=== PATIENT | female | born 1985 | race Caucasian/White ===

== ENCOUNTER 2016-05-10 18:52 | Emergency (ER) ==
[2016-05-10] MEDS ORDERED: TETRACAINE 0.5% UNIT-DOSE OP STA (18:53)
[2016-05-10] MEDS ORDERED: EYE-STREAM OP STA (18:53)
[2016-05-10] MEDS ORDERED: FLUORETS OP STA (18:53)
[2016-05-10 19:00] VITALS: BP 142/80; TEMP 99.3; BMI 30.9
[2016-05-10] MEDS ORDERED: GENTAK OPTH OINT OP STA (19:00)
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
== END 2016-05-10 19:14 | disposition home or self-care (01) ==
LOC: ED 18:52
DX: S05.02XA Injury of conjunctiva and corneal abrasion without foreign body, left eye, initial encounter (principal)
CPT/HCPCS: 99283

== ENCOUNTER 2016-06-20 17:05 | Emergency (ER) ==
[2016-06-20 17:16] VITALS: BP 132/83; TEMP 97.8; BMI 33.9
[2016-06-20] MEDS ORDERED: NORCO 10-325 PO STA (17:32)
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
[2016-06-20 17:50] LABS: BASOPHILS # (AUTO) 0.1 K/uL (0-0.2); BASOPHILS % (AUTO) 0.8 % (0.0-3.0); EOSINOPHILS # (AUTO) 0.2 K/ul (0.0-0.7); EOSINOPHILS % (AUTO) 2.1 % (0.0-7.0); HEMATOCRIT 34.7 % (37.0-47.0); IMMATURE GRANULOCYTE % (AUTO) 0.4 % (0.0-5.0); LYMPHOCYTES # (AUTO) 2.9 K/uL (0.60-3.4); LYMPHOCYTES % (AUTO) 38.5 (10.0-50.0); MEAN CORPUSCULAR HEMOGLOBIN 25.2 pg (27.0-31.0); MEAN CORPUSCULAR HGB CONC 31.7 (31.8-35.4); MEAN CORPUSCULAR VOLUME 79.6 fl (81.0-99.0); MONOCYTES # (AUTO) 0.4 K/uL (0.4-2.0); MONOCYTES % (AUTO) 5.5 (0-10); NEUTROPHILS % (AUTO) 52.7; PLATELET COUNT 375 10^3/uL (140-440); RED BLOOD COUNT 4.36 10^6/ul (4.20-5.40); WHITE BLOOD COUNT 7.58 K/ul (4.6-10.2)
[2016-06-20 17:51] LABS: URINE PREGNANCY INTERNAL QC INTERNAL QC VALID
[2016-06-20 18:10] LABS: ALBUMIN 3.4 g/dL (3.4-5.0); ALBUMIN/GLOBULIN RATIO 0.89; ANION GAP 9.9; BILIRUBIN,TOTAL 0.26 mg/dL (0.00-1.20); BUN/CREATININE RATIO 4.34; CREATININE 0.69 mg/dL (0.60-1.30); POTASSIUM 3.9 mmol/L (3.5-5.10); TOTAL PROTEIN 7.2 g/dL (6.4-8.2)
[2016-06-20 18:56] LABS: FERRITIN 4.32 ng/mL (4.63-204.00)
--- NOTE | 2016-06-20 19:30 | CT ---
EXAM: CT head without contrast HISTORY: Dizziness COMPARISON: None TECHNIQUE: Serial axial images of the brain were obtained from the skull base to the vertex without IV contrast. FINDINGS: The ventricles, cisterns and sulci are normal. The bethea-white matter junction is well ma intained. No midline shift or mass is identified. There is no abnormal intra or extra-axial fluid collection. The paranasal sinuses and mastoid air cells are clear. The osseous calvarium is intact . IMPRESSION: No acute intracranial abnormality or hemorrhage. If further evaluation is clinically i ndicated, MRI may be obtained.
== END 2016-06-20 18:27 | disposition home or self-care (01) ==
LOC: ED 17:05
DX: R42 Dizziness and giddiness (principal); R51 Headache; D64.9 Anemia, unspecified; W19.XXXA Unspecified fall, initial encounter
CPT/HCPCS: 36415; 80053; 81025; 82728; 83540; 83550; 85025; 93005; 93010; 99283; 99284

== ENCOUNTER 2016-07-01 06:30 | Outpatient (CLI) ==
--- NOTE | 2016-07-03 09:04 | ECHO2D ---
Date of Exam: 07/01/16 Ordering Physician: [id number] Reason for Echo: DIZZINESS, SYNCOPE M-Mode Normal Adult Results LV Dimensions Normal Adult Results AoV Opening excursions >1.6 >1.6 LVEDD-base- 3.5-5.8 3.8 Ao root dimensions 2.0-3.7 2.6 LVESD-base- 3.1-4.6 L. Atrium dimensions 1.9-3.8 2.4 Post. Wall thickness 0.8-1.1 1.1 IV septum (thickness) 0.7-1.2 1.1 Post. Wall excursion 0.72-1.3 NORMAL Septal motion NORMAL Systolic motion R. Ventricular cavity 1.5-2.0 NORMAL LVEF 60% 53% Paradoxical septal wall motion NORMAL 2-D :2-D M Mode Echocardiogram was performed using apical four chamber and left parasternal long and short axis views. Mitral, tricuspid and aortic valves appear to be normal. Contractility of the left ventricle seems to be normal, so is the cavity size. Left atrial cavity size and aortic root appear to be normal. There is no pericardial effusion. There is no thrombus noted in the left ventricular or left aortic cavity. No mitral valve prolapse noted. M-MODE: MV: NORMAL AV: NORMAL TV: NORMAL PV: CHAMBER SIZE: NORMAL WALL MOTION: NORMAL PERICARDIUM: NORMAL INTERPRETATION: 1. NORMAL 2 "D" "M" MODE ECHO MTDD
== END 2016-07-01 06:31 | disposition home or self-care (01) ==
LOC: CAR 06:30
PROVIDERS: ATTEND Nurse Practitioner Family
DX: R42 Dizziness and giddiness (principal); R55 Syncope and collapse; I95.1 Orthostatic hypotension

== ENCOUNTER 2016-10-22 17:25 | Emergency (ER) ==
[2016-10-22 17:27] VITALS: BP 121/84; TEMP 99
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
== END 2016-10-22 17:35 | disposition home or self-care (01) ==
LOC: ED 17:25
DX: H60.502 Unspecified acute noninfective otitis externa, left ear (principal); H67.2 Otitis media in diseases classified elsewhere, left ear
CPT/HCPCS: 99282

== ENCOUNTER 2016-12-19 15:53 | Emergency (ER) ==
[2016-12-19 15:59] VITALS: BP 114/75; TEMP 99.5; BMI 32.5
[2016-12-19] MEDS ORDERED: TORADOL IM STA (16:09)
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
== END 2016-12-19 16:58 | disposition home or self-care (01) ==
LOC: ED 15:53
DX: S83.91XA Sprain of unspecified site of right knee, initial encounter (principal); F17.210 Nicotine dependence, cigarettes, uncomplicated
CPT/HCPCS: 96372; 99283

== ENCOUNTER 2017-01-05 02:52 | Emergency (ER) ==
[2017-01-05 03:01] VITALS: BP 123/87; TEMP 98.2; BMI 31.6
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
[2017-01-05] MEDS: XANAX PO STA (03:41)
== END 2017-01-05 03:40 | disposition home or self-care (01) ==
LOC: ED 02:52
DX: F41.9 Anxiety disorder, unspecified (principal); F17.210 Nicotine dependence, cigarettes, uncomplicated; Z76.0 Encounter for issue of repeat prescription
CPT/HCPCS: 99282

== ENCOUNTER 2017-05-12 17:01 | Emergency (ER) ==
[2017-05-12 17:07] VITALS: BP 121/80; TEMP 98.5; BMI 29.5
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
== END 2017-05-12 17:51 | disposition home or self-care (01) ==
LOC: ED 17:01
DX: M54.6 Pain in thoracic spine (principal); M54.2 Cervicalgia; F17.210 Nicotine dependence, cigarettes, uncomplicated
CPT/HCPCS: 99282

== ENCOUNTER 2017-05-18 17:31 | Emergency (ER) ==
[2017-05-18 17:37] VITALS: BP 123/83; TEMP 98.7; BMI 28.5
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
--- NOTE | 2017-05-18 21:00 | DI ---
EXAM: Two-view abdomen HISTORY: Constipation COMPARISON: None. FINDINGS: Mild stool retention is noted throughout the ascending and descending colon. Clips are se en in the right upper quadrant. There is a thoracolumbar levoscoliosis. IMPRESSION: Mild stool retention in the ascending and descending colon.
== END 2017-05-18 21:28 | disposition home or self-care (01) ==
LOC: ED 17:31
DX: K59.00 Constipation, unspecified (principal); F17.210 Nicotine dependence, cigarettes, uncomplicated
CPT/HCPCS: 36415; 84703; 99282

== ENCOUNTER 2017-09-05 14:09 | Inpatient (IN) ==
[2017-09-05] MEDS ORDERED: SOLU-MEDROL 40 MG IVP STA (14:29)
[2017-09-05] MEDS ORDERED: DUONEB NEB STA (14:29)
[2017-09-05] MEDS ORDERED: ROCEPHIN 1 GM in SODIUM CHLORIDE 50 ML IV STA (14:30)
[2017-09-05] MEDS ORDERED: ROCEPHIN ONE (14:37)
--- NOTE | 2017-09-05 15:49 | CT ---
EXAM: CTA chest for PE HISTORY: Chest pain and dyspnea COMPARISON: None TECHNIQUE: CTA of the chest was performed from the lung apices to the upper abdomen after 125 ml of Omnipaque IV contrast was administered using PE protocol. 3-D imaging was also provided. FINDINGS: There is no filling defect in the pulmonary arteries to the level of the subsegmental pulm onary arteries. The heart is normal without signs of ventricular strain. The aorta is unremarkable. The heart is normal without pericardial fluid. There are no mediastinal or hilar lymph nodes. There is no pneumothorax or pleural effusion. There is mild patchy upper lobe predominant ground-gla ss opacities. Minimal patchy ground-glass is scattered throughout the remaining bilateral lungs. Th ere is no acute consolidation. The airways are patent. The limited views of the upper abdomen demonstrate prior cholecystectomy. Soft tissues are unremarka ble otherwise. The osseous structures are unremarkable. IMPRESSION: 1. No pulmonary embolism. 2. Hazy ground-glass throughout both lungs most pronounced in the upper lobes suggestive of atypical infection versus drug reaction or hypersensitivity.
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
[2017-09-05] MEDS ORDERED: TESSALON PERLES PO PRN (15:59)
[2017-09-05] MEDS ORDERED: SODIUM CHLORIDE 1,000 ML IV SCH (16:00)
[2017-09-05] MEDS ORDERED: XANAX PO SCH (16:30)
[2017-09-05 16:31] VITALS: BMI 23.6
[2017-09-05] MEDS ORDERED: XANAX ONE (16:44)
[2017-09-05] MEDS: PHENERGAN WITH CODEINE 6.25/10 MG/5 ML PO PRN ×2 (16:50→22:40)
[2017-09-05] MEDS: K-DUR PO SCH (16:50)
[2017-09-05] MEDS ORDERED: POTASSIUM CHLORIDE 10 MEQ VIAL-ADDITIVE ONLY 40 MEQ in SODIUM CHLORIDE 1,000 ML IV SCH (17:00)
[2017-09-05] MEDS: POTASSIUM CHLORIDE 10 MEQ VIAL-ADDITIVE ONLY 40 MEQ in SODIUM CHLORIDE 1,000 ML IV SCH (17:06)
[2017-09-05] MEDS: DUONEB NEB SCH ×2 (17:10→23:25)
[2017-09-05] MEDS: DOXY-100 100 MG in SODIUM CHLORIDE 100 ML IV SCH (21:39)
[2017-09-05] MEDS: SOLU-MEDROL 125 MG IVP SCH (21:40)
[2017-09-05] MEDS: XANAX PO PRN (22:40)
[2017-09-06] MEDS: DUONEB NEB SCH ×3 (05:27→17:36)
[2017-09-06] MEDS: SOLU-MEDROL 125 MG IVP SCH ×3 (05:43→20:20)
[2017-09-06] MEDS: PHENERGAN WITH CODEINE 6.25/10 MG/5 ML PO PRN ×3 (06:03→18:18)
[2017-09-06] MEDS: POTASSIUM CHLORIDE 10 MEQ VIAL-ADDITIVE ONLY 40 MEQ in SODIUM CHLORIDE 1,000 ML IV SCH (06:17)
[2017-09-06] MEDS ORDERED: SODIUM CHLORIDE 0.9%-KCL 40MEQ 1,000 ML IV SCH (07:15)
[2017-09-06] MEDS: K-DUR PO SCH (07:37)
[2017-09-06] MEDS: SODIUM CHLORIDE 1,000 ML IV SCH (08:22)
[2017-09-06] MEDS: DOXY-100 100 MG in SODIUM CHLORIDE 100 ML IV SCH ×2 (08:46→20:10)
[2017-09-06] MEDS: PROZAC PO SCH (08:47)
[2017-09-06] MEDS: XANAX PO PRN ×2 (08:47→17:24)
[2017-09-06] MEDS: LOVENOX SUBCUT SCH (08:58)
[2017-09-06] MEDS: ROCEPHIN 1 GM in SODIUM CHLORIDE 50 ML IV SCH (10:55)
[2017-09-07] MEDS: XANAX PO PRN ×4 (00:02→22:46)
[2017-09-07] MEDS: PHENERGAN WITH CODEINE 6.25/10 MG/5 ML PO PRN ×4 (00:02→22:47)
[2017-09-07] MEDS: DUONEB NEB SCH ×5 (00:15→20:42)
[2017-09-07] MEDS: SOLU-MEDROL 125 MG IVP SCH ×3 (04:52→20:32)
[2017-09-07] MEDS: LOVENOX SUBCUT SCH (08:24)
[2017-09-07] MEDS: DOXY-100 100 MG in SODIUM CHLORIDE 100 ML IV SCH ×2 (08:24→20:32)
[2017-09-07] MEDS: PROZAC PO SCH (08:25)
[2017-09-07] MEDS: ROCEPHIN 1 GM in SODIUM CHLORIDE 50 ML IV SCH (10:38)
--- NOTE | 2017-09-07 11:48 | DI ---
EXAM: Two views of the chest. History: Cough and wheezing Comparison: Chest radiograph 12/05/2014, chest CT 09/05/2017 Findings: Heart size is normal. No focal consolidation. No appreciable pleural fluid and no pneumo thorax. No acute osseous abnormalities. Scoliosis again noted. Impression: No acute cardiopulmonary process.
--- NOTE | 2017-09-07 11:49 | HP ---
DATE OF SERVICE: 09/05/17 CHIEF COMPLAINT: Cough and congestion HISTORY OF PRESENT ILLNESS: This is a 32 year old white who came to the emergency room with cough and congestion and shortness of breath and wheezing. The patient was seen by Dr. Kapoor. ABG's done which showed the pH 7.670, pCo2 19.1, pO2 138, potassium 2.9 , hgb 11.6, WBC 12.79. CT chest done showed hazy ground glass throughout the both lungs mostly prominent in the upper lobes suggestive of atypical infection versus drug reaction or hypersensitivity. At that time the patient being admitted to the hospital for the pneumonia, community acquired and hypokalemia treatment. The patient was actually treated as outpatient by me on Wednesday started on the antibiotics and breathing treatment and did not help and things got worse as the patient's condition was worsened and despite treating as outpatient the patient being admitted now with the pneumonia. REVIEW OF SYSTEMS: CONSTITUTIONAL: No fever, no chills. HEENT: Normal. ENDOCRINE: No weight gain; no weight loss. CVS: No chest pain. No PND, no orthopnea. Shortness of breath. No PND, no orthopnea. RESPIRATORY: Cough, Congestion. No hemoptysis. GI: No nausea, no vomiting. No abdominal pain. No melena. : No hematuria. No polyuria. MUSCULOSKELETAL: No joint swelling. PSYCHIATRIC: Not anxious. No depression. No suicidal thoughts. No homicidal thoughts. SKIN: Intact, no open lesions. PAST MEDICAL HISTORY: Anxiety Depression PAST SURGICAL HISTORY: Cholecystectomy PERSONAL HISTORY: The patient does not smoke or drink FAMILY HISTORY: Coronary artery disease Atrial fibrillation MEDICATIONS: Xanax Prozac Zyrtec Augmentin Robitussin ALLERGIES: No known drug allergies PHYSICAL EXAMINATION: V/S: Blood pressure 106/74, respiratory rate 20, heart rate 95, temperature 98.4 with saturation 97%. HEENT: Atraumatic, normocephalic. No scleral icterus. Pallor positive. Mucosa dry. NECK: Supple. No JVD, no bruit. No lymphadenopathy. No thyromegaly. HEART: S1, S2 normal. No murmur. No cyanosis or clubbing. No ascites. LUNGS: Decreased and bilateral expiratory wheezing. Diffuse if present. Clear to auscultation. No rales or rhonchi. ABDOMEN: Soft, nontender. Bowel sounds are active. No CVA tenderness. No rigidity or guarding. EXTREMITIES: No pedal edema. No cyanosis or clubbing MUSCULOSKELETAL: Normal joints, no swelling. NEUROLOGIC: The patient is alert and oriented. SKIN: Intact; no open lesions. LYMPHATIC: No lymph nodes palpable. LABS: WBC 12.79, hgb 11.6, hct 34.2, plt count 330. ABG showed the pH 7.670, pCO2 19.1 , pO2 138, sodium 138, potassium 2.9, chloride 104, bicarb 22, BUN 5, creatinine 0.70 and glucose 118. ASSESSMENT: 1. Community acquired pneumonia, bilateral and diffused 2. Hypokalemia 3. Anxiety 4. Depression PLAN: 1. Admit patient to the regular floor 2. CBC and CMP today and daily 3. Cardiac enzymes and Troponin 4. Rocephin 1 gram daily 5. Doxycycline twice a day 6. Lovenox 7. DUO NEBS 8. IV fluids 9. Solu-Medrol 60mg Q 8 hours TIME SPENT: MORE THAN 75 minutes MTDD
[2017-09-07] MEDS: MIRALAX PO SCH (13:23)
--- NOTE | 2017-09-07 14:34 | PN ---
DATE OF SERVICE: 09/06/17 SUBJECTIVE: Still coughing, congestion and shortness of breath. The patient was admitted with the bilateral pneumonia, defused. Shortness of breath is better. Cough syrups are helping. REVIEW OF SYSTEMS: CONSTITUTIONAL: No fever, no chills. HEENT: Normal. ENDOCRINE: No weight gain, no weight loss. CVS: No angina symptoms. No CHF symptoms. No palpitations. No atypical chest pain for CAD. No shortness of breath. No PND, no orthopnea. RESPIRATORY: No cough, no hemoptysis. GI: No nausea, no vomiting. No abdominal pain. : No hematuria. No polyuria. MUSCULOSKELETAL: No joint swelling. PSYCHIATRIC: Not anxious. No depression. No suicidal thoughts. No homicidal thoughts. SKIN: Intact. No rash. PHYSICAL EXAMINATION: V/S: Blood pressure 98/66, respiratory rate 19, heart rate 95, temperature 98.0 with saturation 97%. HEENT: Normocephalic, atraumatic. Mucosa dry. NECK: Supple. No JVD, no carotid bruit. No lymphadenopathy. LUNGS: Bilateral basilar crackles and mild expiratory wheezing is present. Clear to auscultation. No rales or rhonchi. HEART: S1, S2 normal. No S3. No murmur, gallop or regurgitation. ABDOMEN: Soft, nontender. Bowel sounds active. No rigidity. No rebound or guarding. No CVA tenderness. EXTREMITIES: No cyanosis, clubbing or pedal edema. MUSCULOSKELETAL: No joint swelling. NEUROLOGIC: Awake, alert, oriented times three. No focal deficit. LYMPHATIC: No lymph nodes palpable. SKIN: Intact. LABS: WBC 7.71, hgb 10.2, hct 30.9, plt count 296. Sodium 139, potassium 4.2, chloride 110, bicarb 22, BUN 3, creatinine 0.62 and glucose 140. ASSESSMENT: 1. Bilateral community acquired pneumonia most likely atypical pneumonia getting sputum culture 2. Anemia 3. Depression 4. Anxiety 5. Hyperglycemia from the steroids PLAN: 1. Continue antibiotic Rocephin and Doxycycline 2. Solu-Medrol 3. DUO NEBS 4. Tessalon Perles 5. Daily I&O's 6. Phenergan with Codeine TIME SPENT: More than 35 minutes MTDD
[2017-09-07] MEDS: SODIUM CHLORIDE 1,000 ML IV SCH (16:40)
[2017-09-08] MEDS: DUONEB NEB SCH (04:43)
[2017-09-08] MEDS: SOLU-MEDROL 125 MG IVP SCH (05:35)
[2017-09-08] MEDS: PROZAC PO SCH (08:30)
[2017-09-08] MEDS: MIRALAX PO SCH (08:30)
[2017-09-08] MEDS: LOVENOX SUBCUT SCH (08:31)
[2017-09-08] MEDS: XANAX PO PRN (08:33)
[2017-09-08] MEDS: ROCEPHIN 1 GM in SODIUM CHLORIDE 50 ML IV SCH (08:33)
[2017-09-08] MEDS: PHENERGAN WITH CODEINE 6.25/10 MG/5 ML PO PRN (09:05)
[2017-09-08 09:28] VITALS: BP 129/81; TEMP 97.7
[2017-09-08] MEDS: DOXY-100 100 MG in SODIUM CHLORIDE 100 ML IV SCH (09:57)
--- NOTE | 2017-09-10 14:34 | DS ---
DATE OF SERVICE: 09/08/17 FINAL DIAGNOSIS: 1. Bilateral pneumonia per CT scan, community acquired 2. Respiratory distress secondary to the pneumonia 3. Anxiety 4. Depression 5. History of constipation 6. History of Cholecystectomy 7. 8. Nicotine use 9. Anemia 10.Leukocytosis from the steroids. 11.Status post Hyperglycemia from the steroids, has been treated. DISCHARGE INSTRUCTIONS: Discharge the patient home. Advised to take Probiotics. Rest until seen at the office. MEDICATIONS AT DISCHARGE: Xanax Prozac Zyrtec Robitussin NEW PRESCRIPTIONS: Albuterol inhaler ProAir Keflex Doxycycline DIET INSTRUCTIONS: Regular ACTIVITY: As much as tolerated. DISEASE SPECIFIC EDUCATION: Followup Medication Rest Side effects. HOSPITAL COURSE: Catalina Najera 32 year old female initially seen at the [facility] in 09/13 for upper respiratory infection and started on the antibiotic Keflex and Steroids, did not get better and started having cough, congestion and shortness of breath. She came to the emergency room and ABG showed the pH 7.670, pCO2 19.1 , pO2 38. CT of the chest showed the bibasilar infiltrate and infectious process. She was admitted to the hospital with IV antibiotics and breathing treatment. Doxycycline and Rocephin been given and steroids were given too. Lovenox for the DVT prophylaxis. With the given treatment gradually started feeling better. Potassium was 2.9 which was replaced. Hgb was 11.6 which dropped down to 9.6 and 9.7 most likely from the hydration. WBC went o 19,000 and 17,000 most likely from the steroid. Sugars were elevated 118-149 again from the steroid use. But meanwhile the patient was also given the cough medication which did help her tremendously by two days that patient was up and about. Was able to get up out of the bed and walk with less short of breath. Repeat chest x-ray was showing normal. At that time she was discharged home on antibiotics and advised to have followup with [facility] within 5-7 days. TIME SPENT: More than 65 minutes. NIRMAL
== END 2017-09-08 10:38 | disposition home or self-care (01) | DRG 195 ==
LOC: ED 14:09 → MEDSURG B 15:58
PROVIDERS: ADMIT Emergency Medicine; ATTEND Emergency Medicine
DX: J18.9 Pneumonia, unspecified organism (principal); R06.03 Acute respiratory distress; R05 Cough; F41.8 Other specified anxiety disorders; M54.9 Dorsalgia, unspecified; Z72.0 Tobacco use; D64.9 Anemia, unspecified; D72.828 Other elevated white blood cell count; R73.9 Hyperglycemia, unspecified
CPT/HCPCS: 36415; 80053; 82803; 83880; 84703; 85025; 87040; 87070; 93005; 93010; 94640; 96366; 96374; 99284